=== PATIENT | male | born 1940 | race Caucasian/White ===

== ENCOUNTER → 2019-03-09 | Outpatient (CLI) | payer MEDICARE, BC ==
[2019-03-09 17:52] LABS: Anisocytosis Slight; HCT 41.4 % (39.0-53.0); HGB 13.9 gm/dL (13.0-17.5); MCH 27.6 pg (25.0-35.0); MCHC 33.6 g/dL (31.0-37.0); MCV 82.2 fL (80.0-100.0); Mean Platelet Volume 7.7; Platelet Count 242 k/uL (150-450); RBC 5.04 m/uL (4.30-5.90); RDW 16.7 % (11.5-15.5); WBC 10.2 k/uL (3.8-10.6)
[2019-03-09 23:29] LABS: Anion Gap 14.5 mmol/L (4.00-12.00); Carbon Dioxide 33.5 mmol/L (21.6-31.8); Potassium 3.5 mmol/L (3.5-5.5)
== END | disposition home or self-care (01) ==
LOC: LABWHC1 17:04
PROVIDERS: ATTEND Internal Medicine Cardiovascular Disease
DX: R06.02 Shortness of breath (principal)
CPT/HCPCS: 36415; 80051; 82565; 83880; 84443; 84450; 84520; 85027

== ENCOUNTER 2019-03-10 21:57 | Inpatient (IN) | payer MEDICARE, BC ==
--- NOTE | 2019-03-10 22:26 | ED ---
Fall HPI - General Chief Complaint: Fall Stated Complaint: Fall Time Seen by Provider: 03/10/19 22:12 Source: patient Mode of arrival: ambulatory - History of Present Illness Initial Comments: This patient is a 78-year-old man who presents to be evaluated after he had a fall down the stairs lizett. The patient states that he was walking down the stairs and then he feels like he was weak and his legs gave out. Patient states that he initially landed on his left side, including the hip and knee and then tumbled on the stairs. He denies loss of consciousness. He denies pain in other locations. The patient states she was able to get back up with the aid of a walker and did take a few steps on his legs. For lizett's episode, he was not having chest pain, shortness of breath, lightheadedness, or any focal weakness. On the review of systems, patient notes that he has had some exertional dyspnea that is been going on 3-4 weeks. MD Complaint: fall -: minutes(s) Fall From: down stairs (#) (7-10) When Fall Occurred: just prior to arrival Fall Witnessed: yes, by family Place Fall Occurred: home Loss of Consciousness: none Prolonged Down Time?: no Associated Symptoms: denies - Related Data Home Medications Medication Instructions Recorded Confirmed Apixaban [Eliquis] 5 mg PO BID 03/10/19 03/10/19 Carvedilol [Coreg] 3.125 mg PO BID 03/10/19 03/10/19 DULoxetine HCL [Cymbalta] 60 mg PO DAILY 03/10/19 03/10/19 Docusate [Colace] 100 mg PO BID PRN 03/10/19 03/10/19 Ergocalciferol (Vitamin D2) 50,000 unit PO MO 03/10/19 03/10/19 [Drisdol] Furosemide [Lasix] 40 mg PO BID 03/10/19 03/10/19 Insulin Lispro Protamin/Lispro 45 unit SQ BID 03/10/19 03/10/19 [humaLOG Mix 75-25 Kwikpen] Metolazone [Zaroxolyn] 5 mg PO DAILY 03/10/19 03/10/19 Allergies Allergy/AdvReac Type Severity Reaction Status Date / Time No Known Allergies Allergy Verified 03/10/19 22:28 Review of Systems ROS Statement: Those systems with pertinent positive or pertinent negative responses have been documented in the HPI. ROS Other: All systems not noted in ROS Statement are negative. Constitutional: Denies: fever, chills, weakness Eyes: Denies: vision change ENT: Denies: epistaxis Respiratory: Denies: cough, dyspnea, wheezes Cardiovascular: Reports: dyspnea on exertion (Past 3 weeks). Denies: chest pain, palpitations, orthopnea, edema, syncope Gastrointestinal: Denies: abdominal pain, nausea, vomiting, diarrhea, constipation, melena, hematochezia Genitourinary: Denies: dysuria, hematuria Musculoskeletal: Denies: back pain Skin: Denies: rash Neurological: Denies: headache, weakness, numbness, paresthesias Past Medical History Past Medical History: Atrial Fibrillation, Heart Failure, Diabetes Mellitus, H yperlipidemia, Hypertension History of Any Multi-Drug Resistant Organisms: None Reported Past Surgical History: Coronary Bypass/CABG, Joint Replacement, Orthopedic Surgery, Pacemaker Additional Past Surgical History / Comment(s): right wrist, right shouldler , ACID, L4-L5 Past Psychological History: No Psychological Hx Reported Smoking Status: Former smoker Past Alcohol Use History: None Reported Past Drug Use History: None Reported - Past Family History Mother Family Medical History: No Reported History Father Family Medical History: Myocardial Infarction ([place]) Additional Family Medical History / Comment(s): around 62 General Exam Limitations: no limitations, physical limitation General appearance: alert, in no apparent distress Head exam: Present: atraumatic, normocephalic Eye exam: Present: normal appearance, PERRL, EOMI. Absent: scleral icterus, conjunctival injection ENT exam: Present: normal oropharynx Neck exam: Present: normal inspection, full ROM. Absent: tenderness Respiratory exam: Present: normal lung sounds bilaterally. Absent: respiratory distress, wheezes, rales, rhonchi, stridor, chest wall tenderness Cardiovascular Exam: Present: regular rate (The rate is approximately 72 of my exam), irregular rhythm, normal heart sounds. Absent: systolic murmur, diast olic murmur, rubs, gallop GI/Abdominal exam: Present: soft. Absent: distended, tenderness, guarding, rebound, rigid, mass, pulsatile mass, hernia Extremities exam: Present: normal inspection, full ROM, normal capillary refill, other (Patient is able tolerate axial loading of the left leg without discomfort.). Absent: tenderness, pedal edema, calf tenderness Back exam: Present: normal inspection. Absent: CVA tenderness (R), CVA tenderness (L), paraspinal tenderness, vertebral tenderness Neurological exam: Present: alert, oriented X3. Absent: motor sensory deficit Skin exam: Present: warm, dry, intact, normal color, other (There are chronic stasis changes to the bilateral lower legs.). Absent: rash Course Vital Signs 03/10/19 22:01 Temperature 98.4 F Pulse Rate 50 L Respiratory 18 Rate Blood Pressure 107/63 O2 Sat by Pulse 100 Oximetry Medical Decision Making - Medical Decision Making Patient has been cleared from a surgical standpoint at approximately 2340. Patient is a 78-year-old man who presents to the department after he had a fall on the stairs due to feeling generally weak. He is found to have elevated blood sugar and admits to having moderately large serving ice cream prior to presenting. He also has mild lactic acidosis. Patient is given fluids and insulin and will be admitted to ensure that this clears. Case discussed with Dr. Billy who will admit due to the presentation being a trauma and will be medical consultation. - Lab Data Result diagrams: 03/10/19 22:14 03/10/19 22:14 Lab Results 03/10/19 03/10/19 03/10/19 Range/Units 22:12 22:14 22:14 WBC 12.9 H (3.8-10.6) k/uL RBC 5.43 (4.30-5.90) m/uL Hgb 15.3 (13.0-17.5) gm/dL Hct 45.0 (39.0-53.0) % MCV 82.9 (80.0-100.0) fL MCH 28.1 (25.0-35.0) pg MCHC 33.9 (31.0-37.0) g/dL RDW 17.1 H (11.5-15.5) % Plt Count 239 (150-450) k/uL Neutrophils % 81 % Lymphocytes % 11 % Monocytes % 5 % Eosinophils % 1 % Basophils % 1 % Neutrophils # 10.4 H (1.3-7.7) k/uL Lymphocytes # 1.4 (1.0-4.8) k/uL Monocytes # 0.7 (0-1.0) k/uL Eosinophils # 0.2 (0-0.7) k/uL Basophils # 0.1 (0-0.2) k/uL Anisocytosis Slight PT (9.0-12.0) sec INR (<1.2) APTT (22.0-30.0) sec Sodium 133 L (137-145) mmol/L Potassium 3.7 (3.5-5.1) mmol/L Chloride 80 L (98-107) mmol/L Carbon Dioxide 36 H (22-30) mmol/L Anion Gap 17 mmol/L BUN 67 H (9-20) mg/dL Creatinine 2.07 H (0.66-1.25) mg/dL Est GFR (CKD-EPI)AfAm 34 (>60 ml/min/1.73 sqM) Est GFR (CKD-EPI)NonAf 30 (>60 ml/min/1.73 sqM) Glucose 594 H* (74-99) mg/dL POC Glucose (mg/dL) (75-99) mg/dL POC Glu Personal Companion ID Lactic Ac Sepsis Rflx Plasma Lactic Acid Dante (0.7-2.0) mmol/L Calcium 9.9 (8.4-10.2) mg/dL Total Bilirubin 0.9 (0.2-1.3) mg/dL AST 26 (17-59) U/L ALT 22 (21-72) U/L Alkaline Phosphatase 120 (38-126) U/L Total Creatine Kinase (55-170) U/L CK-MB (CK-2) (0.0-2.4) ng/mL CK-MB (CK-2) Rel Index Troponin I (0.000-0.034) ng/mL Total Protein 8.1 (6.3-8.2) g/dL Albumin 4.5 (3.5-5.0) g/dL Amylase 72 (30-110) U/L Lipase 177 (23-300) U/L Serum Alcohol <10 mg/dL Blood Type Blood Type Confirm A Positive Blood Type Recheck Bld Type Recheck Status Antibody Screen Spec Expiration Date 03/10/19 03/10/19 03/10/19 Range/Units 22:14 22:14 22:14 WBC (3.8-10.6) k/uL RBC (4.30-5.90) m/uL Hgb (13.0-17.5) gm/dL Hct (39.0-53.0) % MCV (80.0-100.0) fL MCH (25.0-35.0) pg MCHC (31.0-37.0) g/dL RDW (11.5-15.5) % Plt Count (150-450) k/uL Neutrophils % % Lymphocytes % % Monocytes % % Eosinophils % % Basophils % % Neutrophils # (1.3-7.7) k/uL Lymphocytes # (1.0-4.8) k/uL Monocytes # (0-1.0) k/uL Eosinophils # (0-0.7) k/uL Basophils # (0-0.2) k/uL Anisocytosis PT 10.1 (9.0-12.0) sec INR 0.9 (<1.2) APTT 25.1 (22.0-30.0) sec Sodium (137-145) mmol/L Potassium (3.5-5.1) mmol/L Chloride (98-107) mmol/L Carbon Dioxide (22-30) mmol/L Anion Gap mmol/L BUN (9-20) mg/dL Creatinine (0.66-1.25) mg/dL Est GFR (CKD-EPI)AfAm (>60 ml/min/1.73 sqM) Est GFR (CKD-EPI)NonAf (>60 ml/min/1.73 sqM) Glucose (74-99) mg/dL POC Glucose (mg/dL) (75-99) mg/dL POC Glu Personal Companion ID Lactic Ac Sepsis Rflx Plasma Lactic Acid Dante 3.6 H* (0.7-2.0) mmol/L Calcium (8.4-10.2) mg/dL Total Bilirubin (0.2-1.3) mg/dL AST (17-59) U/L ALT (21-72) U/L Alkaline Phosphatase (38-126) U/L Total Creatine Kinase 48 L (55-170) U/L CK-MB (CK-2) 0.6 (0.0-2.4) ng/mL CK-MB (CK-2) Rel Index 1.3 Troponin I 0.023 (0.000-0.034) ng/mL Total Protein (6.3-8.2) g/dL Albumin (3.5-5.0) g/dL Amylase (30-110) U/L Lipase (23-300) U/L Serum Alcohol mg/dL Blood Type Blood Type Confirm Blood Type Recheck Bld Type Recheck Status Antibody Screen Spec Expiration Date 03/10/19 03/10/19 03/10/19 Range/Units 22:14 22:43 23:19 WBC (3.8-10.6) k/uL RBC (4.30-5.90) m/uL Hgb (13.0-17.5) gm/dL Hct (39.0-53.0) % MCV (80.0-100.0) fL MCH (25.0-35.0) pg MCHC (31.0-37.0) g/dL RDW (11.5-15.5) % Plt Count (150-450) k/uL Neutrophils % % Lymphocytes % % Monocytes % % Eosinophils % % Basophils % % Neutrophils # (1.3-7.7) k/uL Lymphocytes # (1.0-4.8) k/uL Monocytes # (0-1.0) k/uL Eosinophils # (0-0.7) k/uL Basophils # (0-0.2) k/uL Anisocytosis PT (9.0-12.0) sec INR (<1.2) APTT (22.0-30.0) sec Sodium (137-145) mmol/L Potassium (3.5-5.1) mmol/L Chloride (98-107) mmol/L Carbon Dioxide (22-30) mmol/L Anion Gap mmol/L BUN (9-20) mg/dL Creatinine (0.66-1.25) mg/dL Est GFR (CKD-EPI)AfAm (>60 ml/min/1.73 sqM) Est GFR (CKD-EPI)NonAf (>60 ml/min/1.73 sqM) Glucose (74-99) mg/dL POC Glucose (mg/dL) 576 H (75-99) mg/dL POC Glu Personal Companion ID Renee Smiley Lactic Ac Sepsis Rflx Y Plasma Lactic Acid Dante (0.7-2.0) mmol/L Calcium (8.4-10.2) mg/dL Total Bilirubin (0.2-1.3) mg/dL AST (17-59) U/L ALT (21-72) U/L Alkaline Phosphatase (38-126) U/L Total Creatine Kinase (55-170) U/L CK-MB (CK-2) (0.0-2.4) ng/mL CK-MB (CK-2) Rel Index Troponin I (0.000-0.034) ng/mL Total Protein (6.3-8.2) g/dL Albumin (3.5-5.0) g/dL Amylase (30-110) U/L Lipase (23-300) U/L Serum Alcohol mg/dL Blood Type A Positive Blood Type Confirm Blood Type Recheck No Previous Record Bld Type Recheck Status CABO Indicated Antibody Screen NEGATIVE Spec Expiration Date 03/13/2019 - 231303/11/19 Range/Units 00:19 WBC (3.8-10.6) k/uL RBC (4.30-5.90) m/uL Hgb (13.0-17.5) gm/dL Hct (39.0-53.0) % MCV (80.0-100.0) fL MCH (25.0-35.0) pg MCHC (31.0-37.0) g/dL RDW (11.5-15.5) % Plt Count (150-450) k/uL Neutrophils % % Lymphocytes % % Monocytes % % Eosinophils % % Basophils % % Neutrophils # (1.3-7.7) k/uL Lymphocytes # (1.0-4.8) k/uL Monocytes # (0-1.0) k/uL Eosinophils # (0-0.7) k/uL Basophils # (0-0.2) k/uL Anisocytosis PT (9.0-12.0) sec INR (<1.2) APTT (22.0-30.0) sec Sodium (137-145) mmol/L Potassium (3.5-5.1) mmol/L Chloride (98-107) mmol/L Carbon Dioxide (22-30) mmol/L Anion Gap mmol/L BUN (9-20) mg/dL Creatinine (0.66-1.25) mg/dL Est GFR (CKD-EPI)AfAm (>60 ml/min/1.73 sqM) Est GFR (CKD-EPI)NonAf (>60 ml/min/1.73 sqM) Glucose (74-99) mg/dL POC Glucose (mg/dL) 550 H (75-99) mg/dL POC Glu Personal Companion ID Renee Smiley Lactic Ac Sepsis Rflx Plasma Lactic Acid Dante (0.7-2.0) mmol/L Calcium (8.4-10.2) mg/dL Total Bilirubin (0.2-1.3) mg/dL AST (17-59) U/L ALT (21-72) U/L Alkaline Phosphatase (38-126) U/L Total Creatine Kinase (55-170) U/L CK-MB (CK-2) (0.0-2.4) ng/mL CK-MB (CK-2) Rel Index Troponin I (0.000-0.034) ng/mL Total Protein (6.3-8.2) g/dL Albumin (3.5-5.0) g/dL Amylase (30-110) U/L Lipase (23-300) U/L Serum Alcohol mg/dL Blood Type Blood Type Confirm Blood Type Recheck Bld Type Recheck Status Antibody Screen Spec Expiration Date - EKG Data -: EKG Interpreted by Me EKG shows normal: axis (Normal), intervals (Prolonged QT area), QRS complexes (Normal), ST-T waves (Anterolateral T inversions.) Rate: normal (Rate is approximately 89 bpm) Interpretation: other (Underlying rhythm is atrial fibrillation. There is one PVC. There are paced beats) Disposition Clinical Impression: Fall, Hyperglycemia due to type 2 diabetes mellitus, Lactic acidosis Disposition: ADMITTED IP TO THIS HOSP Condition: Fair Is patient prescribed a controlled substance at d/c from ED?: No
--- NOTE | 2019-03-10 22:34 | XR ---
EXAMINATION TYPE: XR chest 1V portable DATE OF EXAM: 03/10/2019 COMPARISON: NONE HISTORY: Falls. Chest pain TECHNIQUE: Single frontal view of the chest is obtained. FINDINGS: There is no heart failure nor confluent pneumonic infiltrate. There is left axillary pacem alo. Costophrenic angles are clear. There is right shoulder prosthesis. IMPRESSION: No active cardiopulmonary disease.
--- NOTE | 2019-03-10 22:35 | XR ---
EXAMINATION TYPE: XR pelvis AP view DATE OF EXAM: 03/10/2019 COMPARISON: NONE HISTORY: Fall. Pain. TECHNIQUE: Single view FINDINGS: Pelvic ring is intact. Proximal femurs and hip joints appear normal. There is no sign of hi p dysplasia. Sacroiliac joints appear normal. IMPRESSION: Normal pelvis
[2019-03-10 22:40] LABS: ALT 22 U/L (21-72); AST 26 U/L (17-59); African American GFR (CKD) 34 (>60 ml/min/1.73 sqM); Albumin 4.5 g/dL (3.5-5.0); Alcohol <10 mg/dL; Alkaline Phosphatase 120 U/L (38-126); Amylase 72 U/L (30-110); Anion Gap 17 mmol/L; Blood Urea Nitrogen 67 mg/dL (9-20); Calcium 9.9 mg/dL (8.4-10.2); Carbon Dioxide 36 mmol/L (22-30); Chloride 80 mmol/L (98-107); Potassium 3.7 mmol/L (3.5-5.1); Sodium 133 mmol/L (137-145); Total Bilirubin 0.9 mg/dL (0.2-1.3); Total Protein 8.1 g/dL (6.3-8.2)
[2019-03-10 22:42] LABS: Anisocytosis Slight; Basophils # (A) 0.1 k/uL (0-0.2); Basophils % (A) 1 %; Eosinophils # (A) 0.2 k/uL (0-0.7); Eosinophils % (A) 1 %; Glucose 594 mg/dL (74-99); HGB 15.3 gm/dL (13.0-17.5); Lymphocytes # (A) 1.4 k/uL (1.0-4.8); Lymphocytes % (A) 11 %; MCH 28.1 pg (25.0-35.0); MCHC 33.9 g/dL (31.0-37.0); MCV 82.9 fL (80.0-100.0); Monocytes # (A) 0.7 k/uL (0-1.0); Monocytes % (A) 5 %; Neutrophils # (A) 10.4 k/uL (1.3-7.7); Neutrophils % (A) 81 %; Platelet Count 239 k/uL (150-450); RBC 5.43 m/uL (4.30-5.90); RDW 17.1 % (11.5-15.5); WBC 12.9 k/uL (3.8-10.6)
--- NOTE | 2019-03-10 22:42 | CT ---
EXAMINATION TYPE: CT brain christian wright DATE OF EXAM: 03/10/2019 COMPARISON: None HISTORY: Fall CT DLP: mGycm Automated exposure control for dose reduction was used. TECHNIQUE: CT scan of the head and cervical spine are performed without contrast. FINDINGS: There is cerebral cortical atrophy. There is no mass effect nor midline shift. There is n o sign of intracranial hemorrhage. Calvarium is intact. Cervical vertebra have normal alignment. There is moderate narrowing of the disc spaces at C5-6 and C 6-7. There is mild facet arthropathy. There is no compression fracture. Skull base is intact. Posteri or elements are intact. IMPRESSION: Cerebral atrophy. No acute intracranial abnormality. Spondylotic changes in the lower cervical spine. No fracture.
[2019-03-10 22:45] LABS: INR 0.9 (<1.2); Partial Thromboplastin Time 25.1 sec (22.0-30.0); Prothrombin Time 10.1 sec (9.0-12.0)
[2019-03-10] MEDS ORDERED: INSULIN REGULAR 100 UNIT/ML VIAL SQ STA (22:47)
[2019-03-10] MEDS ORDERED: SODIUM CHLORIDE 0.9% 1,000 ML IV ONE (22:47)
[2019-03-10 23:04] LABS: Creatine Kinase MB 0.6 ng/mL (0.0-2.4); Troponin I 0.023 ng/mL (0.000-0.034)
[2019-03-10 23:21] LABS: Glucose,Whole Blood 576 mg/dL (75-99)
[2019-03-11 00:20] LABS: Glucose,Whole Blood 550 mg/dL (75-99)
[2019-03-11] MEDS ORDERED: ACETAMINOPHEN TAB 325 MG TAB PO PRN (00:24)
[2019-03-11] MEDS ORDERED: NALOXONE 0.4 MG/ML 1 ML VIAL IV PRN (00:24)
[2019-03-11] MEDS ORDERED: SODIUM CHLORIDE 0.9% 1,000 ML IV SCH (00:30)
[2019-03-11 01:05] LABS: Glucose,Whole Blood 484 mg/dL (75-99)
[2019-03-11] MEDS: SODIUM CHLORIDE 0.9% 1,000 ML IV SCH ×3 (02:39→21:53)
[2019-03-11 06:19] LABS: Appearance,Urine Clear (Clear); Bilirubin,Urine Negative (Negative); Blood,Urine Negative (Negative); Color,Urine Yellow; Glucose,Urine (UA) 4+ (Negative); Ketones,Urine Negative (Negative); Leukocyte Esterase,Urine Negative (Negative); Nitrite,Urine Negative (Negative); PH, Urine 6.5 (5.0-8.0); Protein,Urine Trace (Negative); Specific Gravity,Urine 1.015 (1.001-1.035); Urobilinogen,Urine <2.0 mg/dL (<2.0)
[2019-03-11 06:36] LABS: Amphetamine Screen,Urine Not Detected (NotDetected); Barbiturate Screen,Urine Not Detected (NotDetected); Benzodiazepines Screen,Urine Not Detected (NotDetected); Cocaine Screen,Urine Not Detected (NotDetected); Methadone Screen, Urine Not Detected (NotDetected); Opiate Screen,Urine Not Detected (NotDetected); Oxycodone Screen, Urine Not Detected (NotDetected); Phencyclidine Screen,Urine Not Detected (NotDetected); Tricyclic Antidepressant,Urine Not Detected (NotDetected); Urn Cannabinoid Scrn Not Detected (NotDetected)
[2019-03-11] MEDS: INSULIN ASPART (NovoLOG) 100 UNIT/ML VIAL SQ SCH ×4 (07:23→21:54)
[2019-03-11 07:29] LABS: Glucose,Whole Blood 318 mg/dL (75-99)
--- NOTE | 2019-03-11 08:18 | P.GSHP ---
History of Present Illness H&P Date: 03/11/19 Chief Complaint: Prior 2 trauma status post fall Patient admitted through the ER last night after falling at home. He fell down several stairs. Patient said for the last 2 days he has felt lightheaded any time he stood up. Complained of left hip and left knee pain after the fall. No loss of consciousness. Doing better today. Denies pain currently. No shortness of breath. Patient's lactic acid and blood sugar were elevated. Mild leukocytosis. Patient was admitted for further observation and workup. Underwent CT of brain and C-spine which was normal. Chest x-ray and pelvis x- ray normal. - Review of Systems Comment: The patient denies any acute changes in vision or hearing, no dysphagia or odynophagia, no chest pain or shortness of breath, no dysuria or hematuria, no headache, no runny nose, no rectal bleeding or melena, no unexplained weight loss Past Medical History Past Medical History: Atrial Fibrillation, Heart Failure, Diabetes Mellitus, Hyperlipidemia, Hypertension History of Any Multi-Drug Resistant Organisms: None Reported Past Surgical History: Coronary Bypass/CABG, Joint Replacement, Orthopedic Surgery, Pacemaker Additional Past Surgical History / Comment(s): right wrist, right shouldler , ACID, L4-L5 Past Anesthesia/Blood Transfusion Reactions: No Reported Reaction Date of Last Stent Placement:: 2008 Type of Cardiac Device: Permanent Pacemaker Device Placement Date:: 2008 Past Psychological History: No Psychological Hx Reported Smoking Status: Former smoker Past Alcohol Use History: None Reported Past Drug Use History: None Reported - Past Family History Mother Family Medical History: No Reported History Father Family Medical History: Myocardial Infarction ([place]) Additional Family Medical History / Comment(s): around 62 Medications and Allergies Home Medications Medication Instructions Recorded Confirmed Type Apixaban [Eliquis] 5 mg PO BID 03/10/19 03/10/19 History Carvedilol [Coreg] 3.125 mg PO BID 03/10/19 03/10/19 History DULoxetine HCL [Cymbalta] 60 mg PO DAILY 03/10/19 03/10/19 History Docusate [Colace] 100 mg PO BID PRN 03/10/19 03/10/19 History Ergocalciferol (Vitamin D2) 50,000 unit PO MO 03/10/19 03/10/19 History [Drisdol] Furosemide [Lasix] 40 mg PO BID 03/10/19 03/10/19 History Insulin Lispro Protamin/Lispro 45 unit SQ BID 03/10/19 03/10/19 History [humaLOG Mix 75-25 Kwikpen] Metolazone [Zaroxolyn] 5 mg PO DAILY 03/10/19 03/10/19 History Allergies Allergy/AdvReac Type Severity Reaction Status Date / Time No Known Allergies Allergy Verified 03/10/19 22:28 Surgical - Exam Vital Signs Temp Pulse Resp BP Pulse Ox 98.4 F 50 L 18 107/63 100 03/10/19 22:01 03/10/19 22:01 03/10/19 22:01 03/10/19 22:01 03/10/19 22:01 Physical exam: General: Well-developed, well-nourished HEENT: Normocephalic, sclerae nonicteric, atraumatic Chest: Equal breath sounds, nontender Abdomen: Nontender, nondistended Extremities: Small abrasion right elbow, chronic venous stasis skin changes lower extremity, mild left patellar tenderness Neuro: Alert and oriented Results - Labs 03/10/19 22:14 03/10/19 22:14 Abnormal Lab Results - Last 24 Hours (Table) 03/10/19 03/10/19 03/10/19 Range/Units 22:14 22:14 22:14 WBC 12.9 H (3.8-10.6) k/uL RDW 17.1 H (11.5-15.5) % Neutrophils # 10.4 H (1.3-7.7) k/uL Sodium 133 L (137-145) mmol/L Chloride 80 L (98-107) mmol/L Carbon Dioxide 36 H (22-30) mmol/L BUN 67 H (9-20) mg/dL Creatinine 2.07 H (0.66-1.25) mg/dL Glucose 594 H* (74-99) mg/dL POC Glucose (mg/dL) (75-99) mg/dL Plasma Lactic Acid Dante (0.7-2.0) mmol/L Total Creatine Kinase 48 L (55-170) U/L Urine Protein (Negative) Urine Glucose (UA) (Negative) 03/10/19 03/10/19 03/11/19 Range/Units 22:14 23:19 00:19 WBC (3.8-10.6) k/uL RDW (11.5-15.5) % Neutrophils # (1.3-7.7) k/uL Sodium (137-145) mmol/L Chloride (98-107) mmol/L Carbon Dioxide (22-30) mmol/L BUN (9-20) mg/dL Creatinine (0.66-1.25) mg/dL Glucose (74-99) mg/dL POC Glucose (mg/dL) 576 H 550 H (75-99) mg/dL Plasma Lactic Acid Dante 3.6 H* (0.7-2.0) mmol/L Total Creatine Kinase (55-170) U/L Urine Protein (Negative) Urine Glucose (UA) (Negative) 03/11/19 03/11/19 03/11/19 Range/Units 00:56 02:08 06:07 WBC (3.8-10.6) k/uL RDW (11.5-15.5) % Neutrophils # (1.3-7.7) k/uL Sodium (137-145) mmol/L Chloride (98-107) mmol/L Carbon Dioxide (22-30) mmol/L BUN (9-20) mg/dL Creatinine (0.66-1.25) mg/dL Glucose (74-99) mg/dL POC Glucose (mg/dL) 484 H (75-99) mg/dL Plasma Lactic Acid Dante 4.2 H* (0.7-2.0) mmol/L Total Creatine Kinase (55-170) U/L Urine Protein Trace H (Negative) Urine Glucose (UA) 4+ H (Negative) 03/11/19 03/11/19 Range/Units 06:22 07:18 WBC (3.8-10.6) k/uL RDW (11.5-15.5) % Neutrophils # (1.3-7.7) k/uL Sodium (137-145) mmol/L Chloride (98-107) mmol/L Carbon Dioxide (22-30) mmol/L BUN (9-20) mg/dL Creatinine (0.66-1.25) mg/dL Glucose (74-99) mg/dL POC Glucose (mg/dL) 318 H (75-99) mg/dL Plasma Lactic Acid Dante 2.2 H* (0.7-2.0) mmol/L Total Creatine Kinase (55-170) U/L Urine Protein (Negative) Urine Glucose (UA) (Negative) Diabetes panel 03/10/19 Range/Units 22:14 Sodium 133 L (137-145) mmol/L Potassium 3.7 (3.5-5.1) mmol/L Chloride 80 L (98-107) mmol/L Carbon Dioxide 36 H (22-30) mmol/L BUN 67 H (9-20) mg/dL Creatinine 2.07 H (0.66-1.25) mg/dL Glucose 594 H* (74-99) mg/dL Calcium 9.9 (8.4-10.2) mg/dL AST 26 (17-59) U/L ALT 22 (21-72) U/L Alkaline Phosphatase 120 (38-126) U/L Total Protein 8.1 (6.3-8.2) g/dL Albumin 4.5 (3.5-5.0) g/dL Calcium panel 03/10/19 Range/Units 22:14 Calcium 9.9 (8.4-10.2) mg/dL Albumin 4.5 (3.5-5.0) g/dL Pituitary panel 03/10/19 Range/Units 22:14 Sodium 133 L (137-145) mmol/L Potassium 3.7 (3.5-5.1) mmol/L Chloride 80 L (98-107) mmol/L Carbon Dioxide 36 H (22-30) mmol/L BUN 67 H (9-20) mg/dL Creatinine 2.07 H (0.66-1.25) mg/dL Glucose 594 H* (74-99) mg/dL Calcium 9.9 (8.4-10.2) mg/dL Adrenal panel 03/10/19 Range/Units 22:14 Sodium 133 L (137-145) mmol/L Potassium 3.7 (3.5-5.1) mmol/L Chloride 80 L (98-107) mmol/L Carbon Dioxide 36 H (22-30) mmol/L BUN 67 H (9-20) mg/dL Creatinine 2.07 H (0.66-1.25) mg/dL Glucose 594 H* (74-99) mg/dL Calcium 9.9 (8.4-10.2) mg/dL Total Bilirubin 0.9 (0.2-1.3) mg/dL AST 26 (17-59) U/L ALT 22 (21-72) U/L Alkaline Phosphatase 120 (38-126) U/L Total Protein 8.1 (6.3-8.2) g/dL Albumin 4.5 (3.5-5.0) g/dL Assessment and Plan (1) Fall Narrative/Plan: Continue workup of the patient's leukocytosis elevated blood sugar and lactic acid. We'll consult cardiology who saw the patient just prior to admission. We'll order a left knee x-ray. Likely transfer to medicine once bony fractures ruled out. Current Visit: Yes Status: Acute Code(s): W19.XXXA - UNSPECIFIED FALL, INITIAL ENCOUNTER SNOMED Code(s): 7995702
[2019-03-11] MEDS: FAMOTIDINE 20 MG/2 ML VIAL IV SCH (08:27)
[2019-03-11] MEDS ORDERED: DOCUSATE 100 MG CAP PO PRN (08:43)
[2019-03-11] MEDS ORDERED: METOLAZONE 5 MG TAB PO SCH (09:00)
[2019-03-11] MEDS ORDERED: FAMOTIDINE 20 MG TAB PO SCH (09:00)
[2019-03-11] MEDS: INSULN ASP PRT/INSULIN ASPART 100 UNIT/ML 10 ML VIAL SQ SCH ×2 (09:13→21:53)
[2019-03-11] MEDS: DULoxetine HCL 60 MG CAPSULE.DR PO SCH (09:13)
[2019-03-11] MEDS: CARVEDILOL 3.125 MG TAB PO SCH ×2 (09:16→17:56)
--- NOTE | 2019-03-11 09:33 | XR ---
EXAMINATION TYPE: XR knee limited LT DATE OF EXAM: 03/11/2019 CLINICAL HISTORY: pain TECHNIQUE: Two views of the left knee are obtained. COMPARISON: None. FINDINGS: There is no acute fracture/dislocation. The tri-compartment joint spaces appear within no rmal limits. The overlying soft tissue appears unremarkable. IMPRESSION: There is no acute fracture or dislocation ICD 10 NO FRACTURE, INITIAL EVALUATION
[2019-03-11] MEDS: APIXABAN 5 MG TAB PO SCH ×2 (10:00→21:53)
[2019-03-11 11:55] LABS: Glucose,Whole Blood 267 mg/dL (75-99)
[2019-03-11] MEDS: ATORVASTATIN 40 MG TAB PO SCH (11:56)
--- NOTE | 2019-03-11 14:24 | CONS ---
CONSULTATION Mr. Cornejo is a 78-year-old male who presented after a fall and possible bone fracture. Cardiology consultation was requested because of his cardiac history. The patient was seen by Dr. Theodore for the first time on the of this month. He has underwent coronary artery bypass grafting about 15 years ago and has history of atrial fibrillation as well as ICD implantation. He lives between [place] and [place]. He has been feeling dizzy when he stands up and yesterday when he was going down the stairs, he felt quite weak and fell down the stairs. He had no loss of consciousness. He denies any palpitation, chest discomfort, or change in his breathing. He has chronic dyspnea on exertion and fatigue. He has no clear PND, orthopnea, and no significant recent worsening in his edema. On presentation to the emergency room, he was noted to be in atrial fibrillation with a controlled ventricular response and T-wave inversion in the anterior leads that was noted on the EKG performed by Dr. Theodore on the 09 of March. Patient had an echocardiogram done in September of this year in [place] that reported an ejection fraction of 50% to 55% with mild tricuspid regurgitation and trace mitral regurgitation with no significant pericardial effusion. His coronary risk factors are remarkable for history of diabetes. He is a nonsmoker. MEDICATIONS: His medications include Lasix 40 mg twice a day, metolazone 5 mg twice a day, insulin, vitamin D, Cymbalta, Coreg 3.125 mg twice a day, and Eliquis 5 mg twice a day. REVIEW OF SYSTEMS: RESPIRATORY SYSTEM: He has dyspnea on exertion. No recent wheezing or cough. No history of documented obstructive lung disease. GI SYSTEM: No recent GI bleeding. No peptic ulcer disease. SYSTEM: No dysuria or hematuria. NERVOUS SYSTEM: No stroke or seizure. PHYSICAL EXAMINATION: A 78-year-old male, alert, oriented, in no apparent distress, has a history of obstructive sleep apnea. Blood pressure 115/60 with the heart rate in the 70s. HEAD: Normocephalic. EYES: Sclerae anicteric. NECK: Good carotid upstroke. No bruit. No jugular venous distention. LUNGS: Clear to auscultation. HEART: Irregular, irregular. S1, S2. No S3 with systolic murmur at the base. No diastolic murmur. No rub. ABDOMEN: Soft, nontender. Positive bowel sounds. No organomegaly. EXTREMITIES: With chronic skin discoloration and trace edema. LAB DATA: Lab data revealed a BUN and creatinine 67 and 2.07, potassium 3.7, sodium 133, blood sugar of 594. On presentation, his lactic acid is 3.6. His white blood cells 12.9, hemoglobin of 15.3. Troponin of 0.023. His EKG revealed atrial fibrillation with T-wave inversion anteriorly and evidence of paced rhythm. His chest x-ray revealed no acute infiltrate and there is no evidence of fracture on his pelvis x-ray or knee x-ray. IMPRESSION: 1. Fall and symptoms of dizziness, appears to be orthostatic, could be related to orthostatic hypotension. 2. History of coronary artery disease, status post coronary artery bypass grafting with no evidence of recurrent ischemia. 3. Chronic persistent atrial fibrillation with controlled ventricular response, anticoagulated. 4. History of ICD implantation. 5. History of diabetes. 6. Renal failure of unknown duration. On the lab data that was performed on the , his creatinine was 1.9. RECOMMENDATION: I will hold the metolazone at this time. I will add a statin to his regimen. I will follow his renal function closely and depending on that adjustment of his medical regimen can be made. The patient had an echocardiogram performed recently that revealed preserved systolic function. We will follow his blood pressure and his symptoms to see if diuretics will need to be re-initiated and adjust the dose accordingly. There is no evidence of arrhythmia that is documented at this point to explain his symptoms. Thank you for this consult. We will follow with you. MMODL / IJN: [id number] /
[2019-03-11 14:27] VITALS: BMI 34.5
[2019-03-11] MEDS ORDERED: HEPARIN SODIUM,PORCINE 5,000 UNIT/ML 1 ML VIAL SQ SCH (16:00)
[2019-03-11 17:17] LABS: Glucose,Whole Blood 226 mg/dL (75-99)
[2019-03-11 20:27] LABS: Hemoglobin A1C 11.8 % (4.0-6.0)
[2019-03-11 21:06] LABS: Glucose,Whole Blood 280 mg/dL (75-99)
--- NOTE | 2019-03-12 01:46 | P.CONS ---
History of Present Illness - Reason for Consult Consult date: 03/11/19 Medical management - Chief Complaint Status post fall - History of Present Illness Patient is a 78-year-old male with a known history of coronary disease status post CABG 15 years ago, chronic atrial fibrillation, status post ICD placement, diabetes type 2, hypertension, hyperlipidemia and other medical problems was brought to the hospital status post fall. Patient states that he was walking d own the stairs and suddenly felt very dizzy and his legs gave out and fell from the states. Denied any loss of consciousness. No bladder or bowel incontinence. Patient follows with Dr. Dukes as an outpatient and recent echocardiogram showed normal ejection fraction. Patient is on anticoagulation for atrial fibrillation. Denied any fever or chills. No chest pain or shortness of breath. No nausea vomiting or diarrhea. Denied any recent illnesses. Patient was seen by trauma surgery. Patient had CT head, cervical spine, chest x-ray and x-ray of the pelvis showed no acute fracture or dislocation. Denied any complaints of headache. No other significant pain at this time. No hematemesis or melena. EKG showed atrial fibrillation with controlled with regular rate. She was hyperglycemic with blood sugar greater than 500 on admission Lactic acidosis 3.6 BUN 67 and creatinine 2.07 WBC 12.9 Na 133 Review of Systems Constitutional: Patient denies any fever or chills . No generalized weakness or weight loss. Abdomen: Patient denied nausea vomiting and diarrhea and abdominal pain. Cardiovascular: Patient denies any chest pain or short of breath no palpitations. Respiratory: patient denied any cough is from production. No shortness of br eath Neurologic: Patient denied any numbness or tingling headache. Dizziness. Musculoskeletal: Patient denies any complaints of joint swelling or deformity. Skin: Negative Psychiatric: Negative Endocrine: No heat or cold intolerance. No recent weight gain. Genitourinary: No dysuria or hematuria. All other 14 point ROS negative except the above Past Medical History Past Medical History: Atrial Fibrillation, Heart Failure, Diabetes Mellitus, Hy perlipidemia, Hypertension History of Any Multi-Drug Resistant Organisms: None Reported Past Surgical History: Coronary Bypass/CABG, Joint Replacement, Orthopedic Surgery, Pacemaker Additional Past Surgical History / Comment(s): right wrist, right shouldler , ACID, L4-L5 Past Anesthesia/Blood Transfusion Reactions: No Reported Reaction Date of Last Stent Placement:: 2008 Type of Cardiac Device: Permanent Pacemaker Device Placement Date:: 2008 Past Psychological History: No Psychological Hx Reported Smoking Status: Former smoker Past Alcohol Use History: None Reported Past Drug Use History: None Reported - Past Family History Mother Family Medical History: No Reported History Father Family Medical History: Myocardial Infarction (AR) Additional Family Medical History / Comment(s): around 62 Medications and Allergies Home Medications Medication Instructions Recorded Confirmed Type Apixaban [Eliquis] 5 mg PO BID 03/10/19 03/10/19 History Carvedilol [Coreg] 3.125 mg PO BID 03/10/19 03/10/19 History DULoxetine HCL [Cymbalta] 60 mg PO DAILY 03/10/19 03/10/19 History Docusate [Colace] 100 mg PO BID PRN 03/10/19 03/10/19 History Ergocalciferol (Vitamin D2) 50,000 unit PO MO 03/10/19 03/10/19 History [Drisdol] Furosemide [Lasix] 40 mg PO BID 03/10/19 03/10/19 History Insulin Lispro Protamin/Lispro 45 unit SQ BID 03/10/19 03/10/19 History [humaLOG Mix 75-25 Kwikpen] Metolazone [Zaroxolyn] 5 mg PO DAILY 03/10/19 03/10/19 History Allergies Allergy/AdvReac Type Severity Reaction Status Date / Time No Known Allergies Allergy Verified 03/10/19 22:28 Physical Exam Vitals: Vital Signs Temp Pulse Pulse Resp BP BP Pulse Ox 03/11/19 07:32 97.6 F 70 115/67 99 03/11/19 02:05 98.8 F 79 18 147/74 03/11/19 01:48 98.8 F 81 20 125/79 100 03/10/19 22:01 98.4 F 50 L 18 107/63 100 Intake and Output 03/10/19 03/11/19 03/11/19 22:59 06:59 14:59 Other: Weight 109.316 kg PHYSICAL EXAMINATION: Patient is lying in the bed comfortably, no acute distress, awake alert and oriented.. HEENT: Normocephalic. Neck is supple. Pupils reactive. Nostrils clear. Oral cav ity is moist. Ears reveal no drainage. Neck reveals no JVD, carotid bruits, or thyromegaly. CHEST EXAMINATION: Trachea is central. Symmetrical expansion. Lung sánchez clear to auscultation and percussion. CARDIAC: Normal S1, S2 with no gallops. No murmurs . Irregularly irregular rhythm ABDOMEN: Soft. Bowel sounds normal. No organomegaly. No abdominal bruits. Extremities: reveal no edema. No clubbing or cyanosis Neurologically awake, alert, oriented x3 with well-coordinated movements. No fo annita deficits noted Skin: No rash or skin lesions. Psychiatric: Coperative. Nonsuicidal Musculoskeletal: No joint swelling or deformity. Normal range of motion. Tenderness over the right knee. Results CBC & Chem 7: 03/10/19 22:14 03/10/19 22:14 Labs: Abnormal Lab Results - Last 24 Hours (Table) 03/10/19 03/10/19 03/10/19 Range/Units 22:14 22:14 22:14 WBC 12.9 H (3.8-10.6) k/uL RDW 17.1 H (11.5-15.5) % Neutrophils # 10.4 H (1.3-7.7) k/uL Sodium 133 L (137-145) mmol/L Chloride 80 L (98-107) mmol/L Carbon Dioxide 36 H (22-30) mmol/L BUN 67 H (9-20) mg/dL Creatinine 2.07 H (0.66-1.25) mg/dL Glucose 594 H* (74-99) mg/dL POC Glucose (mg/dL) (75-99) mg/dL Plasma Lactic Acid Dante (0.7-2.0) mmol/L Total Creatine Kinase 48 L (55-170) U/L Urine Protein (Negative) Urine Glucose (UA) (Negative) 03/10/19 03/10/19 03/11/19 Range/Units 22:14 23:19 00:19 WBC (3.8-10.6) k/uL RDW (11.5-15.5) % Neutrophils # (1.3-7.7) k/uL Sodium (137-145) mmol/L Chloride (98-107) mmol/L Carbon Dioxide (22-30) mmol/L BUN (9-20) mg/dL Creatinine (0.66-1.25) mg/dL Glucose (74-99) mg/dL POC Glucose (mg/dL) 576 H 550 H (75-99) mg/dL Plasma Lactic Acid Dante 3.6 H* (0.7-2.0) mmol/L Total Creatine Kinase (55-170) U/L Urine Protein (Negative) Urine Glucose (UA) (Negative) 03/11/19 03/11/19 03/11/19 Range/Units 00:56 02:08 06:07 WBC (3.8-10.6) k/uL RDW (11.5-15.5) % Neutrophils # (1.3-7.7) k/uL Sodium (137-145) mmol/L Chloride (98-107) mmol/L Carbon Dioxide (22-30) mmol/L BUN (9-20) mg/dL Creatinine (0.66-1.25) mg/dL Glucose (74-99) mg/dL POC Glucose (mg/dL) 484 H (75-99) mg/dL Plasma Lactic Acid Dante 4.2 H* (0.7-2.0) mmol/L Total Creatine Kinase (55-170) U/L Urine Protein Trace H (Negative) Urine Glucose (UA) 4+ H (Negative) 03/11/19 03/11/19 Range/Units 06:22 07:18 WBC (3.8-10.6) k/uL RDW (11.5-15.5) % Neutrophils # (1.3-7.7) k/uL Sodium (137-145) mmol/L Chloride (98-107) mmol/L Carbon Dioxide (22-30) mmol/L BUN (9-20) mg/dL Creatinine (0.66-1.25) mg/dL Glucose (74-99) mg/dL POC Glucose (mg/dL) 318 H (75-99) mg/dL Plasma Lactic Acid Dante 2.2 H* (0.7-2.0) mmol/L Total Creatine Kinase (55-170) U/L Urine Protein (Negative) Urine Glucose (UA) (Negative) Assessment and Plan Assessment: Dizziness and status post fall likely due to orthostatic hypotension Orthostatic hypotension secondary to dehydration and volume depletion. Patient is on metolazone and Lasix at home. Acute kidney injury cr 2.07 Lactic acidosis Hypovolemic hyponatremia Chronic atrial fibrillation. Controlled rate on admission. Anticoagulation with Eliquis Hyperglycemia due to uncontrolled diabetes type 2. Could be contributing to worsening depression. Hypertension Hyperlipidemia Coronary artery disease history of CABG History of AICD placement Osteoarthritis DVT prophylaxis patient is already on full anticoagulation Plan: Patient will be continued on IV hydration and monitor closely for any fluid overload. Diuretics Lasix and metolazone has been on hold currently. Continue with other home medications and follow closely. Continue with telemetry monitoring. Cardiology is on board. Monitor renal function and further recommendations based on the clinical course. Prognosis is guarded. Time with Patient: Greater than 30
[2019-03-12] MEDS: SODIUM CHLORIDE 0.9% 1,000 ML IV SCH ×3 (05:56→20:39)
[2019-03-12 07:20] LABS: Anisocytosis Slight; Basophils # (A) 0.1 k/uL (0-0.2); Basophils % (A) 1 %; Eosinophils # (A) 0.4 k/uL (0-0.7); Eosinophils % (A) 5 %; HCT 40.4 % (39.0-53.0); HGB 13.3 gm/dL (13.0-17.5); Lymphocytes # (A) 1.8 k/uL (1.0-4.8); Lymphocytes % (A) 23 %; MCH 27.5 pg (25.0-35.0); MCV 83.3 fL (80.0-100.0); Mean Platelet Volume 7.2; Monocytes # (A) 0.5 k/uL (0-1.0); Monocytes % (A) 6 %; Neutrophils % (A) 64 %; Platelet Count 191 k/uL (150-450); RBC 4.85 m/uL (4.30-5.90); RDW 16.9 % (11.5-15.5); WBC 7.9 k/uL (3.8-10.6)
[2019-03-12 07:49] LABS: Glucose,Whole Blood 248 mg/dL (75-99)
[2019-03-12 08:06] LABS: Calcium 9.1 mg/dL (8.4-10.2)
[2019-03-12 08:24] LABS: Potassium 2.5 mmol/L (3.5-5.1)
[2019-03-12] MEDS: DULoxetine HCL 60 MG CAPSULE.DR PO SCH (08:49)
[2019-03-12] MEDS: FAMOTIDINE 20 MG/2 ML VIAL IV SCH (08:49)
[2019-03-12] MEDS: CARVEDILOL 3.125 MG TAB PO SCH ×2 (08:49→18:05)
[2019-03-12] MEDS: ATORVASTATIN 40 MG TAB PO SCH (08:50)
[2019-03-12] MEDS: APIXABAN 5 MG TAB PO SCH ×2 (08:50→20:38)
[2019-03-12] MEDS: INSULIN ASPART (NovoLOG) 100 UNIT/ML VIAL SQ SCH ×4 (08:50→20:38)
[2019-03-12] MEDS: INSULN ASP PRT/INSULIN ASPART 100 UNIT/ML 10 ML VIAL SQ SCH ×2 (08:50→20:38)
[2019-03-12] MEDS ORDERED: POTASSIUM CHLORIDE 40 MEQ in WATER FOR INJECTION 1 100ML.BAG IVPB STA (08:56)
[2019-03-12] MEDS ORDERED: Potassium Replacement Protocol 1 EACH MISC MISCELLANE PRN (08:57)
--- NOTE | 2019-03-12 09:15 | P.PN ---
Subjective Progress Note Date: 03/12/19 This is a 78-year-old gentleman with history of ischemic heart disease with previous bypass surgery and also chronic atrial fibrillation and chronic leg edema was admitted to the hospital following a fall and suspected fracture. Patient apparently felt dizzy and then became limp and fell to the ground wit hout any clear-cut loss of consciousness. His EKG on admission showed atrial fibrillation. His felt that this fall could be related to postural hypotension. His BUN/creatinine were high on admission. His Zaroxolyn was held. Today his BUN/creatinine has shown improvement. However, his potassium is only 2.5. Patient is getting potassium supplement. Denies any chest pain or shortness of breath. We'll continue to monitor for and not orthostatic changes. Will hold off Zaroxolyn for now. Increase activity as tolerated. Apparently there is no evidence of fracture. Hopefully once potassium is corrected, patient could be discharged home. Objective - Vital Signs Vital signs: Vital Signs Temp 97.7 F 03/12/19 07:27 Pulse 71 03/12/19 07:27 Resp 16 03/12/19 07:27 BP 120/64 03/12/19 07:27 Pulse Ox 100 03/12/19 07:27 Intake & Output 03/11/19 03/12/19 03/12/19 18:59 06:59 18:59 Intake Total 625 380 Balance 625 380 Weight 109.316 kg Intake: Intake, IV Titration 625 240 Amount Sodium Chloride 0.9% 1, 240 000 ml @ 100 mls/hr IV . Q10H [facility] Rx#:[id number] Sodium Chloride 0.9% 1, 625 000 ml @ 125 mls/hr IV . Q8H [facility] Rx#:[id number] Oral 140 Other: Voiding Method Toilet # Voids 1 1 # Bowel Movements 1 - Exam GENERAL EXAM: Patient is alert and oriented and doesn't appear to be in any acute distress HEENT: Normocephalic. Normal reaction of pupils, equal size, normal range of extraocular motion. No erythema or exudates in the throat. NECK: No masses, no nuchal rigidity. CHEST: No chest wall deformity. LUNGS: Equal air entry with no crackles or wheeze. HEART: S1 and S2 normal with no audible mumurs or gallops. Regular rhythm, femorals equal on both sides.. ABDOMEN: No hepatosplenomegaly, normal bowel sounds, no guarding or rigidity. SKIN: No rashes CENTRAL NERVOUS SYSTEM: No focal deficits. EXTREMITIES: No cyanosis, clubbing or edema. - Labs CBC & Chem 7: 03/12/19 06:48 03/12/19 06:48 Labs: Abnormal Lab Results - Last 24 Hours (Table) 03/11/19 03/11/19 03/11/19 Range/Units 11:33 11:43 17:04 RDW (11.5-15.5) % Sodium (137-145) mmol/L Potassium (3.5-5.1) mmol/L Chloride (98-107) mmol/L Carbon Dioxide (22-30) mmol/L BUN (9-20) mg/dL Creatinine (0.66-1.25) mg/dL Glucose (74-99) mg/dL POC Glucose (mg/dL) 267 H 226 H (75-99) mg/dL Hemoglobin A1c 11.8 H (4.0-6.0) % 03/11/19 03/12/19 03/12/19 Range/Units 21:05 06:48 06:48 RDW 16.9 H (11.5-15.5) % Sodium 136 L (137-145) mmol/L Potassium 2.5 L* (3.5-5.1) mmol/L Chloride 92 L (98-107) mmol/L Carbon Dioxide 33 H (22-30) mmol/L BUN 48 H (9-20) mg/dL Creatinine 1.27 H (0.66-1.25) mg/dL Glucose 237 H (74-99) mg/dL POC Glucose (mg/dL) 280 H (75-99) mg/dL Hemoglobin A1c (4.0-6.0) % 03/12/19 Range/Units 07:48 RDW (11.5-15.5) % Sodium (137-145) mmol/L Potassium (3.5-5.1) mmol/L Chloride (98-107) mmol/L Carbon Dioxide (22-30) mmol/L BUN (9-20) mg/dL Creatinine (0.66-1.25) mg/dL Glucose (74-99) mg/dL POC Glucose (mg/dL) 248 H (75-99) mg/dL Hemoglobin A1c (4.0-6.0) % Assessment and Plan (1) History of coronary artery bypass graft Current Visit: Yes Status: Acute Code(s): Z95.1 - PRESENCE OF AORTOCORONARY BYPASS GRAFT SNOMED Code(s): 975626375 (2) Fall Current Visit: Yes Status: Acute Code(s): W19.XXXA - UNSPECIFIED FALL, INITIAL ENCOUNTER SNOMED Code(s): 0103426 (3) History of chronic atrial fibrillation Current Visit: Yes Status: Acute Code(s): Z86.79 - PERSONAL HISTORY OF OTHER DISEASES OF THE CIRCULATORY SYSTEM SNOMED Code(s): 162628976 (4) Hypokalemia Current Visit: Yes Status: Acute Code(s): E87.6 - HYPOKALEMIA SNOMED Code(s): 76517856 Plan: Hold off Zaroxolyn. Correct potassium. Check for postural changes of hypertension. Continue to monitor for any cardiac arrhythmias. Increase activity. Possible discharge within next 24 hours
[2019-03-12] MEDS: POTASSIUM CHLORIDE 10 MEQ in WATER FOR INJECTION 1 100ML.BAG IVPB SCH ×4 (09:34→18:05)
[2019-03-12] MEDS: POTASSIUM CHLORIDE ER 20 MEQ TAB.ER PO SCH ×3 (09:34→15:15)
[2019-03-12] MEDS ORDERED: MAG HYDROX/AL HYDROX/SIMETH 30 ML CUP PO PRN (10:30)
--- NOTE | 2019-03-12 10:48 | P.PN ---
Subjective Progress Note Date: 03/12/19 Principal diagnosis: Status post fall Patient doing better today. Better energy level. Denies pain in the extremities. Denies shortness breath or abdominal pain. Tolerating diet. Knee x-rays were clear. Objective - Vital Signs Vital signs: Vital Signs Temp 97.7 F 03/12/19 07:27 Pulse 71 03/12/19 07:27 Resp 16 03/12/19 07:27 BP 120/64 03/12/19 07:27 Pulse Ox 100 03/12/19 07:27 Intake & Output 03/11/19 03/12/19 03/12/19 18:59 06:59 18:59 Intake Total 625 380 Balance 625 380 Weight 109.316 kg Intake: Intake, IV Titration 625 240 Amount Sodium Chloride 0.9% 1, 240 000 ml @ 100 mls/hr IV . Q10H [facility] Rx#:[id number] Sodium Chloride 0.9% 1, 625 000 ml @ 125 mls/hr IV . Q8H [facility] Rx#:[id number] Oral 140 Other: Voiding Method Toilet Toilet # Voids 1 1 # Bowel Movements 1 - Exam Abdomen: Soft, nontender, nondistended - Labs CBC & Chem 7: 03/12/19 06:48 03/12/19 06:48 Labs: Abnormal Lab Results - Last 24 Hours (Table) 03/11/19 03/11/19 03/11/19 Range/Units 11:33 11:43 17:04 RDW (11.5-15.5) % Sodium (137-145) mmol/L Potassium (3.5-5.1) mmol/L Chloride (98-107) mmol/L Carbon Dioxide (22-30) mmol/L BUN (9-20) mg/dL Creatinine (0.66-1.25) mg/dL Glucose (74-99) mg/dL POC Glucose (mg/dL) 267 H 226 H (75-99) mg/dL Hemoglobin A1c 11.8 H (4.0-6.0) % Magnesium (1.6-2.3) mg/dL 03/11/19 03/12/19 03/12/19 Range/Units 21:05 06:48 06:48 RDW (11.5-15.5) % Sodium 136 L (137-145) mmol/L Potassium 2.5 L* (3.5-5.1) mmol/L Chloride 92 L (98-107) mmol/L Carbon Dioxide 33 H (22-30) mmol/L BUN 48 H (9-20) mg/dL Creatinine 1.27 H (0.66-1.25) mg/dL Glucose 237 H (74-99) mg/dL POC Glucose (mg/dL) 280 H (75-99) mg/dL Hemoglobin A1c (4.0-6.0) % Magnesium 2.6 H (1.6-2.3) mg/dL 03/12/19 03/12/19 Range/Units 06:48 07:48 RDW 16.9 H (11.5-15.5) % Sodium (137-145) mmol/L Potassium (3.5-5.1) mmol/L Chloride (98-107) mmol/L Carbon Dioxide (22-30) mmol/L BUN (9-20) mg/dL Creatinine (0.66-1.25) mg/dL Glucose (74-99) mg/dL POC Glucose (mg/dL) 248 H (75-99) mg/dL Hemoglobin A1c (4.0-6.0) % Magnesium (1.6-2.3) mg/dL Assessment and Plan (1) Fall Narrative/Plan: Patient doing well after recent fall. Continue medical workup. We'll sign off. Please call if needed. Current Visit: Yes Status: Acute Code(s): W19.XXXA - UNSPECIFIED FALL, INITIAL ENCOUNTER SNOMED Code(s): 4500105
[2019-03-12 11:50] LABS: Glucose,Whole Blood 238 mg/dL (75-99)
[2019-03-12 17:23] LABS: Glucose,Whole Blood 339 mg/dL (75-99)
[2019-03-12 20:08] LABS: Glucose,Whole Blood 320 mg/dL (75-99)
[2019-03-13] MEDS ORDERED: POTASSIUM CHLORIDE ER 20 MEQ TAB.ER PO STA (01:26)
--- NOTE | 2019-03-13 02:53 | P.PN ---
Subjective Progress Note Date: 03/12/19 Patient is a 78-year-old male with a known history of coronary disease status post CABG 15 years ago, chronic atrial fibrillation, status post ICD placement, diabetes type 2, hypertension, hyperlipidemia and other medical problems was brought to the hospital status post fall. Patient states that he was walking down the stairs and suddenly felt very dizzy and his legs gave out and fell from the states. Denied any loss of consciousness. No bladder or bowel incontinence. Patient follows with Dr. Dukes as an outpatient and recent echocardiogram showed normal ejection fraction. Patient is on anticoagulation for atrial fibrillation. Denied any fever or chills. No chest pain or shortness of breath. No nausea vomiting or diarrhea. Denied any recent illnesses. Patient was seen by trauma surgery. Patient had CT head, cervical spine, chest x-ray and x-ray of the pelvis showed no acute fracture or dislocation. Denied any complaints of headache. No other significant pain at this time. No hematemesis or melena. EKG showed atrial fibrillation with controlled with regular rate. She was hyperglycemic with blood sugar greater than 500 on admission Lactic acidosis 3.6 BUN 67 and creatinine 2.07 WBC 12.9 Na 133 03/12/2018 Patient is currently lying in the bed comfortably. Currently wearing CPAP mask. No complaints of chest pain or shortness of breath. Patient says that his dizziness is better today. Renal function improved as well. Otherwise percussion of is 2.9 this morning which is being replaced. PTOT and possible discharge Next 24 hours. Cardiology and general surgery is on board. Diabetes continues to be on hold. Possible restarting with low-dose likely tomorrow. will reduce IV fluid rate. Current medications reviewed. Objective - Vital Signs Vital signs: Vital Signs Temp 97.6 F 03/12/19 15:00 Pulse 76 03/12/19 15:00 Resp 16 03/12/19 15:00 BP 115/76 03/12/19 15:00 Pulse Ox 98 03/12/19 15:00 Intake & Output 03/12/19 03/12/19 03/13/19 06:59 18:59 06:59 Intake Total 380 746 236 Balance 380 746 236 Intake: Intake, IV Titration 240 Amount Sodium Chloride 0.9% 1, 240 000 ml @ 100 mls/hr IV . Q10H [facility] Rx#:[id number] Oral 140 746 236 Other: Voiding Method Toilet Toilet # Voids 1 3 - Exam PHYSICAL EXAMINATION: Patient is lying in the bed comfortably, no acute distress, awake alert and oriented.. HEENT: Normocephalic. Neck is supple. Pupils reactive. Nostrils clear. Oral cavity is moist. Ears reveal no drainage. Neck reveals no JVD, carotid bruits, or thyromegaly. CHEST EXAMINATION: Trachea is central. Symmetrical expansion. Lung sánchez clear to auscultation and percussion. CARDIAC: Normal S1, S2 with no gallops. No murmurs . Irregularly irregular rhythm ABDOMEN: Soft. Bowel sounds normal. No organomegaly. No abdominal bruits. Extremities: reveal no edema. No clubbing or cyanosis Neurologically awake, alert, oriented x3 with well-coordinated movements. No focal deficits noted Skin: No rash or skin lesions. Psychiatric: Coperative. Nonsuicidal Musculoskeletal: No joint swelling or deformity. Normal range of motion. Tenderness over the right knee. - Labs CBC & Chem 7: 03/12/19 06:48 03/12/19 19:50 Labs: Abnormal Lab Results - Last 24 Hours (Table) 03/11/19 03/11/19 03/12/19 Range/Units 11:33 21:05 06:48 RDW (11.5-15.5) % Sodium 136 L (137-145) mmol/L Potassium 2.5 L* (3.5-5.1) mmol/L Chloride 92 L (98-107) mmol/L Carbon Dioxide 33 H (22-30) mmol/L BUN 48 H (9-20) mg/dL Creatinine 1.27 H (0.66-1.25) mg/dL Glucose 237 H (74-99) mg/dL POC Glucose (mg/dL) 280 H (75-99) mg/dL Hemoglobin A1c 11.8 H (4.0-6.0) % Magnesium (1.6-2.3) mg/dL 03/12/19 03/12/19 03/12/19 Range/Units 06:48 06:48 07:48 RDW 16.9 H (11.5-15.5) % Sodium (137-145) mmol/L Potassium (3.5-5.1) mmol/L Chloride (98-107) mmol/L Carbon Dioxide (22-30) mmol/L BUN (9-20) mg/dL Creatinine (0.66-1.25) mg/dL Glucose (74-99) mg/dL POC Glucose (mg/dL) 248 H (75-99) mg/dL Hemoglobin A1c (4.0-6.0) % Magnesium 2.6 H (1.6-2.3) mg/dL 03/12/19 03/12/19 Range/Units 11:49 17:21 RDW (11.5-15.5) % Sodium (137-145) mmol/L Potassium (3.5-5.1) mmol/L Chloride (98-107) mmol/L Carbon Dioxide (22-30) mmol/L BUN (9-20) mg/dL Creatinine (0.66-1.25) mg/dL Glucose (74-99) mg/dL POC Glucose (mg/dL) 238 H 339 H (75-99) mg/dL Hemoglobin A1c (4.0-6.0) % Magnesium (1.6-2.3) mg/dL Assessment and Plan Assessment: Dizziness and status post fall likely due to orthostatic hypotension is improving. Orthostatic hypotension secondary to dehydration and volume depletion. Patient is on metolazone and Lasix at home. Acute kidney injury cr 2.07--1.27 Lactic acidosis Hypovolemic hyponatremia Chronic atrial fibrillation. Controlled rate on admission. Anticoagulation with Eliquis Hyperglycemia due to uncontrolled diabetes type 2. Could be contributing to worsening depression. Hypertension Hyperlipidemia Coronary artery disease history of CABG History of AICD placement Osteoarthritis DVT prophylaxis patient is already on full anticoagulation Plan: Patient will be continued on IV hydration and monitor closely for any fluid overload. Diuretics Lasix and metolazone has been on hold currently. Continue with other home medications and follow closely. Continue with telemetry monitoring. Cardiology is on board. Monitor renal function and further recommendations based on the clinical course. Prognosis is guarded. Time with Patient: Greater than 30
[2019-03-13] MEDS: SODIUM CHLORIDE 0.9% 1,000 ML IV SCH ×2 (05:08→22:24)
[2019-03-13 07:14] LABS: Basophils % (A) 0 %; Eosinophils # (A) 0.4 k/uL (0-0.7); Eosinophils % (A) 5 %; HCT 37.5 % (39.0-53.0); HGB 12.7 gm/dL (13.0-17.5); Lymphocytes # (A) 1.9 k/uL (1.0-4.8); Lymphocytes % (A) 23 %; MCH 28.3 pg (25.0-35.0); MCHC 33.9 g/dL (31.0-37.0); MCV 83.5 fL (80.0-100.0); Mean Platelet Volume 7.2; Monocytes # (A) 0.6 k/uL (0-1.0); Monocytes % (A) 7 %; Neutrophils % (A) 63 %; Platelet Count 202 k/uL (150-450); RBC 4.49 m/uL (4.30-5.90); RDW 15.3 % (11.5-15.5); WBC 7.9 k/uL (3.8-10.6)
[2019-03-13 07:24] LABS: Calcium 8.7 mg/dL (8.4-10.2)
[2019-03-13 07:48] LABS: Glucose,Whole Blood 115 mg/dL (75-99)
[2019-03-13 07:50] LABS: Glucose,Whole Blood 102 mg/dL (75-99)
[2019-03-13] MEDS: INSULIN ASPART (NovoLOG) 100 UNIT/ML VIAL SQ SCH ×4 (08:44→20:35)
[2019-03-13] MEDS: DULoxetine HCL 60 MG CAPSULE.DR PO SCH (09:15)
[2019-03-13] MEDS: FAMOTIDINE 20 MG/2 ML VIAL IV SCH (09:15)
[2019-03-13] MEDS: CARVEDILOL 3.125 MG TAB PO SCH ×2 (09:15→17:23)
[2019-03-13] MEDS: ATORVASTATIN 40 MG TAB PO SCH (09:15)
[2019-03-13] MEDS: APIXABAN 5 MG TAB PO SCH ×2 (09:15→20:34)
[2019-03-13] MEDS: INSULN ASP PRT/INSULIN ASPART 100 UNIT/ML 10 ML VIAL SQ SCH ×2 (09:16→20:35)
[2019-03-13 11:48] LABS: Glucose,Whole Blood 258 mg/dL (75-99)
[2019-03-13] MEDS: POTASSIUM CHLORIDE ER 20 MEQ TAB.ER PO SCH ×2 (12:46→17:23)
--- NOTE | 2019-03-13 16:21 | P.PN ---
Subjective Progress Note Date: 03/13/19 This is a 78-year-old gentleman with history of ischemic heart disease with previous bypass surgery and also chronic atrial fibrillation and chronic leg edema was admitted to the hospital following a fall and suspected fracture. Patient apparently felt dizzy and then became limp and fell to the ground wit hout any clear-cut loss of consciousness. His EKG on admission showed atrial fibrillation. His felt that this fall could be related to postural hypotension. His BUN/creatinine were high on admission. His Zaroxolyn was held. Today his BUN/creatinine has shown improvement. However, his potassium is only 2.5. Patient is getting potassium supplement. Denies any chest pain or shortness of breath. We'll continue to monitor for and not orthostatic changes. Will hold off Zaroxolyn for now. Increase activity as tolerated. Apparently there is no evidence of fracture. Hopefully once potassium is corrected, patient could be discharged home. 03/13/2019: This patient is feeling much better. His ZAROXOLYN. He got potassium supplement. However, his potassium still about 3. He has received an additional supplement today. Denies any chest pain or shortness of breath. Lungs are clear. Heart is regular. He continues to be in atrial fibrillation. We'll increase activity as tolerated. Probably could be discharged home within next 24 hours Objective - Vital Signs Vital signs: Vital Signs Temp 97.9 F 03/13/19 08:22 Pulse 77 03/13/19 08:22 Resp 16 03/13/19 08:22 BP 142/73 03/13/19 08:22 Pulse Ox 99 03/13/19 08:22 Intake & Output 03/12/19 03/13/19 03/13/19 18:59 06:59 18:59 Intake Total 746 716 236 Balance 746 716 236 Intake: Oral 746 716 236 Other: Voiding Method Toilet Toilet Toilet # Voids 3 1 3 - Exam GENERAL EXAM: Patient is alert and oriented and doesn't appear to be in any acute distress HEENT: Normocephalic. Normal reaction of pupils, equal size, normal range of extraocular motion. No erythema or exudates in the throat. NECK: No masses, no nuchal rigidity. CHEST: No chest wall deformity. LUNGS: Equal air entry with no crackles or wheeze. HEART: S1 and S2 normal with no audible mumurs or gallops. Regular rhythm, femorals equal on both sides.. ABDOMEN: No hepatosplenomegaly, normal bowel sounds, no guarding or rigidity. SKIN: No rashes CENTRAL NERVOUS SYSTEM: No focal deficits. EXTREMITIES: No cyanosis, clubbing or edema. - Labs CBC & Chem 7: 03/13/19 06:14 03/13/19 06:14 Labs: Abnormal Lab Results - Last 24 Hours (Table) 03/12/19 03/12/19 03/13/19 Range/Units 17:21 20:07 06:14 Hgb (13.0-17.5) gm/dL Hct (39.0-53.0) % Potassium 3.0 L (3.5-5.1) mmol/L Carbon Dioxide 32 H (22-30) mmol/L BUN 33 H (9-20) mg/dL Glucose 104 H (74-99) mg/dL POC Glucose (mg/dL) 339 H 320 H (75-99) mg/dL 03/13/19 03/13/19 03/13/19 Range/Units 06:14 07:46 07:49 Hgb 12.7 L (13.0-17.5) gm/dL Hct 37.5 L (39.0-53.0) % Potassium (3.5-5.1) mmol/L Carbon Dioxide (22-30) mmol/L BUN (9-20) mg/dL Glucose (74-99) mg/dL POC Glucose (mg/dL) 115 H 102 H (75-99) mg/dL 03/13/19 Range/Units 11:47 Hgb (13.0-17.5) gm/dL Hct (39.0-53.0) % Potassium (3.5-5.1) mmol/L Carbon Dioxide (22-30) mmol/L BUN (9-20) mg/dL Glucose (74-99) mg/dL POC Glucose (mg/dL) 258 H (75-99) mg/dL Assessment and Plan (1) History of coronary artery bypass graft Current Visit: Yes Status: Acute Code(s): Z95.1 - PRESENCE OF AORTOCORONARY BYPASS GRAFT SNOMED Code(s): 057315332 (2) Fall Current Visit: Yes Status: Acute Code(s): W19.XXXA - UNSPECIFIED FALL, INITIAL ENCOUNTER SNOMED Code(s): 7500177 (3) History of chronic atrial fibrillation Current Visit: Yes Status: Acute Code(s): Z86.79 - PERSONAL HISTORY OF OTHER DISEASES OF THE CIRCULATORY SYSTEM SNOMED Code(s): 914712005 (4) Hypokalemia Current Visit: Yes Status: Acute Code(s): E87.6 - HYPOKALEMIA SNOMED Code(s): 82898072 Plan: Patient is clinically stable. No more dizziness. His potassium is still low which is being corrected. Zaroxolyn is being held. Possible discharge within next 24 hours.
[2019-03-13 17:29] LABS: Glucose,Whole Blood 286 mg/dL (75-99)
[2019-03-13] MEDS ORDERED: POTASSIUM CHLORIDE ER 20 MEQ TAB.ER PO ONE (20:00)
[2019-03-13 20:26] LABS: Glucose,Whole Blood 270 mg/dL (75-99)
--- NOTE | 2019-03-14 02:28 | P.PN ---
Subjective Progress Note Date: 03/13/19 Principal diagnosis: Dizziness likely secondary to orthostatic hypotension Patient is a 78-year-old male with a known history of coronary disease status post CABG 15 years ago, chronic atrial fibrillation, status post ICD placement, diabetes type 2, hypertension, hyperlipidemia and other medical problems was brought to the hospital status post fall. Patient states that he was walking down the stairs and suddenly felt very dizzy and his legs gave out and fell from the states. Denied any loss of consciousness. No bladder or bowel incontinence. Patient follows with Dr. Dukes as an outpatient and recent echocardiogram showed normal ejection fraction. Patient is on anticoagulation for atrial fibrillation. Denied any fever or chills. No chest pain or shortness of breath. No nausea vomiting or diarrhea. Denied any recent illnesses. Patient was seen by trauma surgery. Patient had CT head, cervical spine, chest x-ray and x-ray of the pelvis showed no acute fracture or dislocation. Denied any complaints of headache. No other significant pain at this time. No hematemesis or melena. EKG showed atrial fibrillation with controlled with regular rate. She was hyperglycemic with blood sugar greater than 500 on admission Lactic acidosis 3.6 BUN 67 and creatinine 2.07 WBC 12.9 Na 133 03/12/2018 Patient is currently lying in the bed comfortably. Currently wearing CPAP mask. No complaints of chest pain or shortness of breath. Patient says that his dizziness is better today. Renal function improved as well. Otherwise percussion of is 2.9 this morning which is being replaced. PTOT and possible discharge Next 24 hours. Cardiology and general surgery is on board. Diuretics continues to be on hold. Possible restarting with low-dose likely tomorrow. will reduce IV fluid rate. 03/13/2019 Patient is currently sitting in the bed comfortably. Tolerating oral diet. No complaints of dizziness or lightheadedness. Able to walk without support. Otherwise percussion level is 3.0 today which is being replaced. And spit discharge next 24-48 hours with marked clinical improvement. Cardiology is following. Lasix and metolazone continues to be on hold. Current medications reviewed. Objective - Vital Signs Vital signs: Vital Signs Temp 97.7 F 03/13/19 17:20 Pulse 72 03/13/19 17:20 Resp 16 03/13/19 17:20 BP 115/72 03/13/19 17:20 Pulse Ox 100 03/13/19 17:20 Intake & Output 03/12/19 03/13/19 03/13/19 18:59 06:59 18:59 Intake Total 746 716 236 Balance 746 716 236 Intake: Oral 746 716 236 Other: Voiding Method Toilet Toilet Toilet # Voids 3 1 3 - Exam PHYSICAL EXAMINATION: Patient is lying in the bed comfortably, no acute distress, awake alert and oriented.. HEENT: Normocephalic. Neck is supple. Pupils reactive. Nostrils clear. Oral cavity is moist. Ears reveal no drainage. Neck reveals no JVD, carotid bruits, or thyromegaly. CHEST EXAMINATION: Trachea is central. Symmetrical expansion. Lung sánchez clear to auscultation and percussion. CARDIAC: Normal S1, S2 with no gallops. No murmurs . Irregularly irregular rhythm ABDOMEN: Soft. Bowel sounds normal. No organomegaly. No abdominal bruits. Extremities: reveal no edema. No clubbing or cyanosis Neurologically awake, alert, oriented x3 with well-coordinated movements. No focal deficits noted Skin: No rash or skin lesions. Psychiatric: Coperative. Nonsuicidal Musculoskeletal: No joint swelling or deformity. Normal range of motion. Tenderness over the right knee. - Labs CBC & Chem 7: 03/13/19 06:14 03/13/19 06:14 Labs: Abnormal Lab Results - Last 24 Hours (Table) 03/12/19 03/13/19 03/13/19 Range/Units 20:07 06:14 06:14 Hgb 12.7 L (13.0-17.5) gm/dL Hct 37.5 L (39.0-53.0) % Potassium 3.0 L (3.5-5.1) mmol/L Carbon Dioxide 32 H (22-30) mmol/L BUN 33 H (9-20) mg/dL Glucose 104 H (74-99) mg/dL POC Glucose (mg/dL) 320 H (75-99) mg/dL 03/13/19 03/13/19 03/13/19 Range/Units 07:46 07:49 11:47 Hgb (13.0-17.5) gm/dL Hct (39.0-53.0) % Potassium (3.5-5.1) mmol/L Carbon Dioxide (22-30) mmol/L BUN (9-20) mg/dL Glucose (74-99) mg/dL POC Glucose (mg/dL) 115 H 102 H 258 H (75-99) mg/dL 03/13/19 Range/Units 17:25 Hgb (13.0-17.5) gm/dL Hct (39.0-53.0) % Potassium (3.5-5.1) mmol/L Carbon Dioxide (22-30) mmol/L BUN (9-20) mg/dL Glucose (74-99) mg/dL POC Glucose (mg/dL) 286 H (75-99) mg/dL Assessment and Plan Assessment: Dizziness and status post fall likely due to orthostatic hypotension is improving. Orthostatic hypotension secondary to dehydration and volume depletion. Patient is on metolazone and Lasix at home. Acute kidney injury cr 2.07--1.27 Lactic acidosis Hypovolemic hyponatremia Chronic atrial fibrillation. Controlled rate on admission. Anticoagulation with Eliquis Hyperglycemia due to uncontrolled diabetes type 2. Could be contributing to worsening depression. Hypertension Hyperlipidemia Coronary artery disease history of CABG History of AICD placement Osteoarthritis DVT prophylaxis patient is already on full anticoagulation Plan: Patient will be continued on IV hydration and monitor closely for any fluid overload. Diuretics Lasix and metolazone has been on hold currently. Continue with other home medications and follow closely. Continue with telemetry monitoring. Cardiology is on board. Monitor renal function and further recommendations based on the clinical course. Prognosis is guarded. Time with Patient: Greater than 30
[2019-03-14 06:43] VITALS: BP 112/72; PULSE 69; RESP 16; TEMP 97.7
[2019-03-14 06:49] LABS: Glucose,Whole Blood 142 mg/dL (75-99)
[2019-03-14] MEDS: FAMOTIDINE 20 MG/2 ML VIAL IV SCH (07:28)
[2019-03-14] MEDS: DULoxetine HCL 60 MG CAPSULE.DR PO SCH (07:28)
[2019-03-14] MEDS: APIXABAN 5 MG TAB PO SCH (07:29)
[2019-03-14] MEDS: INSULIN ASPART (NovoLOG) 100 UNIT/ML VIAL SQ SCH ×2 (07:29→12:35)
[2019-03-14] MEDS: CARVEDILOL 3.125 MG TAB PO SCH (07:29)
[2019-03-14] MEDS: ATORVASTATIN 40 MG TAB PO SCH (07:29)
[2019-03-14] MEDS: INSULN ASP PRT/INSULIN ASPART 100 UNIT/ML 10 ML VIAL SQ SCH (08:47)
[2019-03-14] MEDS ORDERED: ERGOCALCIFEROL 50,000 UNIT CAP PO SCH (09:00)
[2019-03-14] MEDS: POTASSIUM CHLORIDE ER 20 MEQ TAB.ER PO SCH ×2 (09:17→10:15)
--- NOTE | 2019-03-14 11:13 | P.PN ---
Subjective This is a pleasant 78-year-old male past medical history significant for coronary artery disease status post bypass grafting atrial fibrillation, diabetes mellitus, hypertension, chronic systolic heart failure, ischemic cardiomyopathy and dyslipidemia. He follows in the office with Dr. Theodore. We are following him secondary to dizziness. Diuretics have been held since admission. Currently maintained on carvedilol 3.125 mg twice a day, atorvastatin 40 mg daily and Eliquis 5 mg twice a day. Laboratory data reviewed, potassium 3.4. B lood pressure 112/72 heart rate 69 afebrile maintaining oxygen saturation on room air. He is seen and examined laying flat resting comfortably in bed in no acute distress. He denies symptoms of chest pain, shortness of breath, dizziness or palpitations. He has been off diuretics now for 3 days with no shortness of breath or lower extremity edema. GENERAL: Well-appearing, well-nourished and in no acute distress. NECK: Supple without JVD or thyromegaly. LUNGS: Breath sounds clear to auscultation bilaterally. Respiration equal and unlabored. No wheezes, rales or rhonchi. HEART: Irregular rate and rhythm without murmurs, rubs or gallops. S1 and S2 heard. EXTREMITIES: Normal range of motion, no edema, chronic color change bilaterally. No clubbing or cyanosis. Peripheral pulses intact. ASSESSMENT Fall and dizziness, orthostatic changes noted. Diuretics discontinued and improved. Hypokalemia Chronic systolic heart failure, currently euvolemic. Recent echo in [place] 09/2018 reveals preserved LV systolic function with trace MR and mild TR. Ischemic cardiomyopathy History of coronary artery disease status post bypass grafting History of AICD implantation Chronic persistent atrial fibrillation with controlled ventricular response on long-term anticoagulation Diabetes mellitus Dyslipidemia PLAN Replace potassium per protocol prior to discharge. Continue current medical regimen for discharge. Hold all diuretics at home. This has been explained in detail to the patient. Follow up in the office with Dr. Theodore next week. Nurse Practitioner note has been reviewed, I agree with a documented findings and plan of care. Patient was seen and examined. Objective - Vital Signs Vital signs: Vital Signs Temp 97.7 F 03/14/19 06:42 Pulse 69 03/14/19 06:42 Resp 16 03/14/19 06:42 BP 112/72 03/14/19 06:42 Pulse Ox 98 09/23/19 06:42 Intake & Output 03/13/19 03/14/19 03/14/19 18:59 06:59 18:59 Intake Total 236 1256 Balance 236 1256 Intake: Oral 236 1256 Other: Voiding Method Toilet Toilet Toilet # Voids 3 1 1 - Labs CBC & Chem 7: 03/13/19 06:14 03/14/19 07:21 Labs: Abnormal Lab Results - Last 24 Hours (Table) 03/13/19 03/13/19 03/13/19 Range/Units 11:47 17:25 20:24 Potassium (3.5-5.1) mmol/L POC Glucose (mg/dL) 258 H 286 H 270 H (75-99) mg/dL 03/14/19 03/14/19 Range/Units 06:47 07:21 Potassium 3.4 L (3.5-5.1) mmol/L POC Glucose (mg/dL) 142 H (75-99) mg/dL
[2019-03-14] MEDS ORDERED: POTASSIUM CHLORIDE ER 20 MEQ TAB.ER PO STA (11:59)
[2019-03-14 12:13] LABS: Glucose,Whole Blood 152 mg/dL (75-99)
== END 2019-03-14 14:18 | disposition home or self-care (01) | DRG 683 ==
LOC: EC 21:57 → 4SSUR 03-11 00:24 → OBSVTOIN 03-12 13:46
PROVIDERS: ADMIT Internal Medicine; ATTEND Internal Medicine
DX: N17.9 Acute kidney failure, unspecified (principal); I50.22 Chronic systolic (congestive) heart failure; E87.2 Acidosis; E87.1 Hypo-osmolality and hyponatremia; E86.0 Dehydration; E11.65 Type 2 diabetes mellitus with hyperglycemia; E86.1 Hypovolemia; I11.0 Hypertensive heart disease with heart failure; I48.2 Chronic atrial fibrillation; I25.5 Ischemic cardiomyopathy; D72.829 Elevated white blood cell count, unspecified; E78.5 Hyperlipidemia, unspecified; E87.6 Hypokalemia; I25.10 Atherosclerotic heart disease of native coronary artery without angina pectoris; I95.1 Orthostatic hypotension; M19.90 Unspecified osteoarthritis, unspecified site; R60.0 Localized edema; M25.562 Pain in left knee; M25.552 Pain in left hip; G47.33 Obstructive sleep apnea (adult) (pediatric); Z79.4 Long term (current) use of insulin; Z79.01 Long term (current) use of anticoagulants; Z79.899 Other long term (current) drug therapy; Z95.1 Presence of aortocoronary bypass graft; Z95.810 Presence of automatic (implantable) cardiac defibrillator; Z87.891 Personal history of nicotine dependence; Z96.60 Presence of unspecified orthopedic joint implant; Z82.49 Family history of ischemic heart disease and other diseases of the circulatory system; W10.9XXA Fall (on) (from) unspecified stairs and steps, initial encounter; Y92.009 Unspecified place in unspecified non-institutional (private) residence as the place of occurrence of the external cause
CPT/HCPCS: 36415; 70450; 71045; 72125; 72170; 80048; 80053; 80306; 80320; 81003; 82150; 82550; 82553; 83036; 83605; 83690; 83735; 84132; 84484; 85025; 85610; 85730; 86850; 86900; 86901; 93005; 96360; 99285

== ENCOUNTER → 2019-03-28 | Outpatient (CLI) | payer MEDICARE, BC ==
[2019-03-28 11:35] LABS: Chol/HDL Ratio 2.58; LDL Cholesterol,Calculated 37.4 mg/dL (0.0-131.0); VLDL Calculation 14.6 mg/dL (5.00-40.00)
== END | disposition home or self-care (01) ==
LOC: LABWHC1 06:53
PROVIDERS: ATTEND Internal Medicine Cardiovascular Disease
DX: E78.2 Mixed hyperlipidemia (principal)
CPT/HCPCS: 36415; 80061; 84450; 84460